=== PATIENT | male | born 1980 | race Caucasian/White ===

== ENCOUNTER 2016-05-14 07:34 | Inpatient (IN) | payer MEDICARE ==
[2016-05-07 14:02] LABS: BASOPHILS 0.3 %; BASOPHILS ABSOLUTE 0.02 10/3/uL (0.0-0.16); EOSINOPHILS 2.6 %; EOSINOPHILS ABSOLUTE 0.18 10/3/uL (0.0-0.53); HEMATOCRIT 35.5 % (40.0-51.0); HEMOGLOBIN 11.7 g/dL (13.6-17.8); IMMATURE GRANULOCYTES 0.1 %; IMMATURE GRANULOCYTES ABSOLUTE 0.01 10/3/uL (0.0-0.11); LYMPHOCYTES 31.8 %; LYMPHOCYTES ABSOLUTE 2.23 10/3/uL (0.67-4.30); MEAN PLATELET VOLUME 10.6 fL (9.2-13.0); MONOCYTES ABSOLUTE 0.42 10/3/uL (0.21-1.20); NEUTROPHILS 59.2 %; NEUTROPHILS ABSOLUTE 4.15 10/3/uL (2.02-8.40); PLATELET COUNT 255 10/3/uL (150-400); RBC DISTRIBUTION WIDTH 14.7 % (12.0-16.0); RED CELL COUNT 4.34 10/6/uL (4.7-6.1)
[2016-05-07 14:03] LABS: MANUAL DIFF NO %; MEAN CORPUSCULAR VOLUME 81.8 fL (80-100)
[2016-05-07 14:21] LABS: BUN (BLOOD UREA NITROGEN) 12 MG/DL (6-23); CALCIUM, SERUM 8.5 MG/DL (8.5-10.4); CHLORIDE, SERUM 102 MMOL/L (96-112); CO2 (CARBON DIOXIDE) 29 MMOL/L (24-34); CREATININE 0.76 MG/DL (0.70-1.30); GFR AFRICAN AMERICAN 135 ML/MIN (>=60); GFR NON AFRICAN AMERICAN 117 ML/MIN (>=60); POTASSIUM, SERUM 4.3 MMOL/L (3.5-5.3); PREALBUMIN 16.1 MG/DL (17.0-43.0); SODIUM, SERUM 140 MMOL/L (135-148)
[2016-05-07 14:22] LABS: GLUCOSE, SERUM 346 MG/DL (60-99)
--- NOTE | ~2016-05-14 | DS ---
Discharge Summary [facility] [address] [place]. [address] NAME: PEDRO BARRERA : 78 STATUS : DIS IN PAT#: [id number] AGE: 36 ADM/REG DATE : 05/14/16 MR#: [id number] REPORT SERV DATE: 05/25/16 DICTATED BY: DARLENE CORNELIUS JR. DATE: 05/24/16 REPORT STATUS : Draft TRANSCRIBED BY: EUGENE DATE: 05/24/16 Data Collection from hospitalization DISCHARGE DIAGNOSES: 1. Sacral ulcer. 2. Hypertension. 3. Obstructive sleep apnea. 4. Diabetes mellitus. CONSULTATIONS: Clay Christianson M.D. PROCEDURE PERFORMED: Excision of sacral ulcer with bone with adjacent myocutaneous flap closure 14 x 7 on 05/14/2016. PATHOLOGY: Skin with underlying cartilage and bone, sacrum debridement, transcutaneous ulceration with underlying mixed inflammation and scarring, chronic active osteomyelitis. MEDICATIONS: Lipitor 40 mg at bedtime, Celexa 20 mg at bedtime, Toujeo 25 units in the morning and 25 units in the evening, NovoLog insulin 12 units before meals, Flomax 0.4 mg at 1800, VESIcare 5 mg at bedtime, Orazinc 220 mg daily, Glucophage 500 mg twice daily, Invokana 100 mg daily, Robaxin 750 mg daily as needed, Prinivil 40 mg daily as needed, Zantac 150 mg twice daily as needed, Levsin 125 mcg every four hours as needed. CONDITION AT DISCHARGE: Upon discharge, he did appear to be doing well and had no complaints. DISPOSITION: He was discharged home to continue an 1800-calorie ADA diet with activity as tolerated. He was to follow up with the [facility] with myself on 05/30/2016. Follow up with his machine skiver as directed. Follow up with Dr. Juancarlos Ricketts on 05/28/2016. Home Healthcare was in place upon discharge. HOSPITAL COURSE: This 36-year-old male had developed a sacral ulceration with osteomyelitis. He had been treated with antibiotics and debridement. He had had significant improvement and appropriate closure was felt to be indicated. He was now admitted for closure and further treatment. Upon admission to the hospital, he had been taken to the operating room where he did undergo the above procedure. He did tolerate this well and was transferred to the recovery room. On postop day #1, he was noted to have a low-grade temperature. His vital signs, however, were otherwise stable. He was continued on his current medications. He had also been evaluated by Dr. Christianson for medical management and he had noted that the patient's diabetes was very uncontrolled despite multiple diabetic medications including long and short-acting insulin. He felt the patient would need to have increased insulin to get his wound to heal quicker. He had recommended planning on a twice a day long-acting insulin with sliding scale insulin and premeal insulin. His Invokana and metformin were placed on hold for the time being. He did also recommend the patient to follow up with an machine skiver in the near future as he had felt the patient may be a candidate for an insulin pump. He did also undergo diabetic education on postop day 1. On postop day #2, he was noted to be feeling better and was encouraged to increase his activity. He had remained afebrile and his vital signs were stable. He was continued on his current medications. On Discharge Summary [address] [address] NAME: PEDRO BARRERA : 78 STATUS : DIS IN PAT#: [id number] AGE: 36 ADM/REG DATE : 05/14/16 MR#: [id number] REPORT SERV DATE: 05/25/16 DICTATED BY: DARLENE CORNELIUS JR. DATE: 05/24/16 REPORT STATUS : Draft TRANSCRIBED BY: EUGENE DATE: 05/24/16 postop day 3, he remained in stable condition, however, was noted to have had an episode of hypoglycemia. He did continue to do well and was then discharged on 05/18/2016 with the above instructions. Information collected by: Kamari MacarioINikita. I submit the above information as my discharge summary. RW/MODL Darlene Cornelius Jr., M.D. / [id number] CC: Cece Mojica Jr., DO
--- NOTE | ~2016-05-14 | CN ---
Consultation Report [facility] [address] [place]. [address] NAME: PEDRO BARRERA : 78 STATUS : ADM Bimal PAT#: [id number] AGE: 36 ADM/REG DATE : 05/14/16 MR#: [id number] REPORT SERV DATE: 05/15/16 DICTATED BY: RANDALL BRENNAN DATE: 05/14/16 REPORT STATUS : Draft TRANSCRIBED BY: MODPatti DATE: 05/14/16 CONSULT DATE OF CONSULTATION: OIL DEVELOPER: Consult coming from Dr. Phelps for diabetic management. HISTORY OF PRESENT ILLNESS: This is a 36-year-old male who has a history of L1 burst fracture and in 4 years ago the patient underwent a thoracolumbar spine surgery and since that time, has been having complications from it including osteomyelitis, cyst formation, delayed wound healing, infected wound. The patient has been seeing different surgeons throughout this time until he maintained relationship with Dr. Phelps. Dr. Phelps has been taking care of his wound and according to the patient and , that his wound is slowly getting better in the past six months. Today, the patient underwent an excision and flap closure of the sacral wound and we are now called for management of diabetes. The patient said that he has been a diabetic for about a few months now and actually could have been a year or so. He says that he sees Dr. Ricketts and has been managing his diabetes. According to what he remembers, there was no change in his dosages for the last six months and his sugar has been uncontrolled ranging from 250 to greater than 400. He denies being noncompliant and he denies any other diabetic complications. He denies any recent fever, chills, or sweats. No nausea and vomiting. He does have incontinence of his urinary and bowel function. He denies any chest pains, cough, near syncopal, or syncopal episode. He did admit though that he gets frequent dizziness when he tries to stand up quickly, and he mentioned that he does not take his lisinopril every day as this makes him bottom out. REVIEW OF SYSTEMS: Rest of the 14-point review of systems is negative except as above. PAST MEDICAL HISTORY: Includes the above, chronic back pain, hypertension, frequent UTIs, fatty liver disease, prostatitis, hypercholesterolemia, multiple surgical events on his back, ear tubes as a child. ALLERGIES: HE IS ALLERGIC TO MORPHINE AND CLINDAMYCIN. MEDICATIONS: Include Lipitor, Invokana, Celexa, Levsin, NovoLog, Toujeo, lisinopril, Glucophage, Robaxin, Zantac, VESIcare, Flomax, and zinc. SOCIAL HISTORY: The patient occasionally drinks alcohol but not to the point of intoxication. He does not smoke or use recreational drugs. FAMILY HISTORY: Positive for CAD. PHYSICAL EXAMINATION: GENERAL: The patient is alert and oriented x3, not in cardiopulmonary distress. Consultation Report [facility] [id number] [facility] [place]. [address] NAME: PEDRO BARRERA : 78 STATUS : ADM Bimal PAT#: [id number] AGE: 36 ADM/REG DATE : 05/14/16 MR#: [id number] REPORT SERV DATE: 05/15/16 DICTATED BY: RANDALL BRENNAN DATE: 05/14/16 REPORT STATUS : Draft TRANSCRIBED BY: EUGENE DATE: 05/14/16 VITAL SIGNS: Include saturation of 99% on room air, blood pressure of 107/73, temperature of 97.7, pulse rate of 69, respiration of 16. NECK: He has supple neck. No JVD or carotid bruits. No lymphadenopathy. HEENT: [place] conjunctivae. Anicteric sclerae. No pharyngeal erythema. LUNGS: Clear lungs. No rales. No wheezes. CARDIOVASCULAR: Regular rate and rhythm. No murmurs appreciated. ABDOMEN: Positive bowel sounds. Soft, nontender, no masses. EXTREMITIES: Fair pulses. Trace edema. NEURO: Shows decreased sensation in the lower extremities, much more decreased in the groin area but it seems to be symmetrical. Muscle strength are symmetrical but the lower extremities are weaker than the upper extremity. The patient has a MIKHAIL drain attached to his back and it is dressed. LABORATORY DATA: On May 07 reveals a chemistry within normal limits except for a glucose of 346, white count of 7.0 and H and H of 11.7 and 35.5. Latest hemoglobin A1c that I could check is in November and that is 9.3. ASSESSMENT: 1. Status post flap closure of sacral wound. 2. Uncontrolled diabetes. 3. Hypertension. 4. Hypercholesterolemia. PLAN: The patient's diabetes is very uncontrolled despite multiple diabetic medications including long and short-acting insulin. He will need to have increased insulin to get his wound to heal quicker. We will plan on a twice a day long-acting insulin with sliding scale and pre-meal insulin. We will hold the Invokana and metformin for now until we get more blood work. The patient may need to see an drapery examiner in the near future and he might be a candidate for an insulin pump. We will hold his BP medications for now as he says he bottoms out and his blood pressure is within low normal levels right now. We will place him on hydralazine p.r.n. Thank you for the consult. The hospitalist team will follow with you. MILKA/EUGENE Randall Brennan M.D. / [id number] CC: Denver Phelps Jr., M.D. Consultation Report [address] [address] NAME: PEDRO BARRERA : 78 STATUS : ADM Bimal PAT#: [id number] AGE: 36 ADM/REG DATE : 05/14/16 MR#: [id number] REPORT SERV DATE: 05/15/16 DICTATED BY: RANDALL BRENNAN DATE: 05/14/16 REPORT STATUS : Draft TRANSCRIBED BY: EUGENE DATE: 05/14/16 Juancarlos Ricketts DO
--- NOTE | ~2016-05-14 | OP ---
Record Of Operation [facility] [address] [place]. [address] NAME: PDERO BARRERA : 78 STATUS : ADM Bimal PAT#: [id number] AGE: 36 ADM/REG DATE : 05/14/16 MR#: [id number] REPORT SERV DATE: 05/15/16 DICTATED BY: DARLENE CORNELIUS JR. DATE: 05/14/16 REPORT STATUS : Draft TRANSCRIBED BY: MODPatti DATE: 05/14/16 DATE OF PROCEDURE: SURGEON: Darlene Cornelius M.D. MEDICAL COLLECTIONS SPECIALIST: Leonie Donaldson. PROCEDURE: Excision of sacral ulcer with bone with adjacent myocutaneous flap closure (14 x 7). PREOPERATIVE DIAGNOSIS: Sacral ulcer. POSTOPERATIVE DIAGNOSIS: Sacral ulcer. ANESTHESIA: General. INDICATIONS: This patient developed a sacral ulceration with osteomyelitis. He has been treatment with antibiotics and debridement. He has had significant improvement and appropriate closure is indicated. FINDINGS: There was a wound that measured 5 x 3 x 4, there was exposure of bone at the base that was nonviable along with some other tissues excised including the bone yielding a very healthy wound, a rhomboid flap incorporating skin, subcutaneous tissue, and portion of muscle and fascia was undertaken from the patient's right side and rotated closure. This was closed over 14 x 7 cm area. DESCRIPTION OF PROCEDURE: With adequate general anesthesia, the patient was placed in the prone position. The buttock area was prepped and draped sterilely. A 10 blade incision was made around the ulcer. This was carried down sharply through the subcutaneous tissues. Nonviable tissue excised from the skin and subcutaneous tissue, also a curette was utilized and then an osteotome to remove portions of the sacrum. Hemostasis was ensured with electrocautery. The wound was irrigated thoroughly with saline and also with a pulse lavage. Then, a superolateral right-sided rhomboid flap was outlined, a myocutaneous flap was then rotated and to close the defect and the wound was then closed with subcutaneous 2-0 Vicryl and cutaneous sutures of 2-0 nylon. A 19 Aurelio drain was left in the defect and brought out on the right-side where it was secured with a nylon suture, and the wound was then dressed with an Aquacel flex and overlay negative pressure VAC dressing. He tolerated it well. ESTIMATED BLOOD LOSS: 100 mL. AFRICA/EUGENE Darlene Cornelius Record Of Operation [address] [place]. [address] NAME: PEDRO BARRERA : 78 STATUS : ADM Bimal PAT#: [id number] AGE: 36 ADM/REG DATE : 05/14/16 MR#: [id number] REPORT SERV DATE: 05/15/16 DICTATED BY: DARLENE CORNELIUS JR. DATE: 05/14/16 REPORT STATUS : Draft TRANSCRIBED BY: EUGENE DATE: 05/14/16 Cece Burns / [id number]
[~2016-05-14 07:34] MED LIST: CELEXA20 PO; DITROPAN XL10 MG PO; FLOMAX4 PO; GLUCPH PO; INVOKANA100 MG PO; LANTUSCART SC; LEVAQUIN750 MG PO; LEVSINTAB PO; LIPITOR40 PO; LISINOPRIL40 MG PO; METHOC750B PO; NEUR300 PO; NOVOLOG SC; NOVOPENMIX SC; ORAZINC110 MG; PCET PO; TOUJEO SC; VESICARE10 MG PO; VESICARE5 PO; VICTOZA18 MG/3 ML SC; ZANTAC150 MG PO; ZOLOFT25 MG PO; ZOSYN375 IV; [UNRECOGNIZED DRUG - OTHER] PO
[2016-05-15 06:11] LABS: BASOPHILS 0.3 %; BASOPHILS ABSOLUTE 0.02 10/3/uL (0.0-0.16); EOSINOPHILS 1.6 %; EOSINOPHILS ABSOLUTE 0.12 10/3/uL (0.0-0.53); HEMATOCRIT 32.8 % (40.0-51.0); HEMOGLOBIN 10.5 g/dL (13.6-17.8); IMMATURE GRANULOCYTES 0.3 %; IMMATURE GRANULOCYTES ABSOLUTE 0.02 10/3/uL (0.0-0.11); LYMPHOCYTES 28.2 %; LYMPHOCYTES ABSOLUTE 2.08 10/3/uL (0.67-4.30); MEAN CORPUSCULAR HEMOGLOB 26.9 pg (26.0-34.0); MEAN CORPUSCULAR VOLUME 84.1 fL (80-100); MEAN PLATELET VOLUME 10.4 fL (9.2-13.0); MONOCYTES 8.3 %; MONOCYTES ABSOLUTE 0.61 10/3/uL (0.21-1.20); NEUTROPHILS 61.3 %; NEUTROPHILS ABSOLUTE 4.53 10/3/uL (2.02-8.40); PLATELET COUNT 261 10/3/uL (150-400); WHITE BLOOD CELLS 7.4 10/3/uL (4.5-10.5)
[2016-05-15 06:12] LABS: MANUAL DIFF NO %
[2016-05-15 06:27] LABS: A/G RATIO 0.6 (0.7-1.9); ALBUMIN 2.2 G/DL (3.5-5.0); BUN (BLOOD UREA NITROGEN) 10 MG/DL (6-23); CALCIUM, SERUM 8.2 MG/DL (8.5-10.4); CHLORIDE, SERUM 103 MMOL/L (96-112); CO2 (CARBON DIOXIDE) 31 MMOL/L (24-34); CREATININE 0.63 MG/DL (0.70-1.30); GFR AFRICAN AMERICAN 146 ML/MIN (>=60); GFR NON AFRICAN AMERICAN 126 ML/MIN (>=60); GLOBULIN 3.5 G/DL (2.5-4.1); POTASSIUM, SERUM 3.9 MMOL/L (3.5-5.3); SGOT(AST) 7 U/L (5-40); SGPT(ALT) 10 U/L (5-65); SODIUM, SERUM 140 MMOL/L (135-148); TOTAL BILIRUBIN 0.5 MG/DL (0-1.2); TOTAL PROTEIN 5.7 G/DL (6.0-8.5)
[2016-05-15 06:29] LABS: ALKALINE PHOSPHATASE 107 U/L (45-117); GLUCOSE, SERUM 175 MG/DL (60-99)
[2016-05-15 07:11] LABS: PREALBUMIN 8.4 MG/DL (17.0-43.0)
[2016-05-16 06:19] LABS: HEMOGLOBIN 10.5 g/dL (13.6-17.8); MEAN CORPUS HGB CONC 31.8 g/dL (32.0-36.0); MEAN CORPUSCULAR HEMOGLOB 26.6 pg (26.0-34.0); MEAN CORPUSCULAR VOLUME 83.5 fL (80-100); MEAN PLATELET VOLUME 10.7 fL (9.2-13.0); PLATELET COUNT 283 10/3/uL (150-400); RED CELL COUNT 3.95 10/6/uL (4.7-6.1); WHITE BLOOD CELLS 6.6 10/3/uL (4.5-10.5)
[2016-05-16 06:23] LABS: BUN (BLOOD UREA NITROGEN) 8 MG/DL (6-23); CALCIUM, SERUM 8.4 MG/DL (8.5-10.4); CHLORIDE, SERUM 103 MMOL/L (96-112); CO2 (CARBON DIOXIDE) 28 MMOL/L (24-34); CREATININE 0.54 MG/DL (0.70-1.30); GFR AFRICAN AMERICAN 155 ML/MIN (>=60); GFR NON AFRICAN AMERICAN 134 ML/MIN (>=60); GLUCOSE, SERUM 84 MG/DL (60-99); POTASSIUM, SERUM 3.4 MMOL/L (3.5-5.3); SODIUM, SERUM 142 MMOL/L (135-148)
[2016-05-16 06:46] LABS: EOSINOPHILS 4 %; EOSINOPHILS ABSOLUTE (CALC) 0.26 10/3/uL (0.0-0.53); LYMPHOCYTES 25 %; LYMPHOCYTES ABSOLUTE (CALC) 1.65 10/3/uL (0.67-4.30); MONOCYTES 2 %; MONOCYTES ABSOLUTE (CALC) 0.13 10/3/uL (0.21-1.20); NEUTROPHILS ABSOLUTE (CALC) 4.55 10/3/uL (2.02-8.40); PLATELET ESTIMATE ADQ (ADEQUATE); RBC MORPHOLOGY NORM (NORMAL); SEGMENTED NEUTROPHIL (0) 69 %; TOTAL NUCLEATED CELLS 100
[2016-05-17 05:48] LABS: CALCIUM, SERUM 8.6 MG/DL (8.5-10.4); CHLORIDE, SERUM 104 MMOL/L (96-112); CO2 (CARBON DIOXIDE) 26 MMOL/L (24-34); CREATININE 0.62 MG/DL (0.70-1.30); GFR AFRICAN AMERICAN 147 ML/MIN (>=60); GFR NON AFRICAN AMERICAN 127 ML/MIN (>=60); GLUCOSE, SERUM 72 MG/DL (60-99); POTASSIUM, SERUM 3.9 MMOL/L (3.5-5.3); SODIUM, SERUM 141 MMOL/L (135-148)
[2016-05-17 05:49] LABS: BUN (BLOOD UREA NITROGEN) 12 MG/DL (6-23)
[2016-05-18 06:19] LABS: BASOPHILS 0.3 %; BASOPHILS ABSOLUTE 0.02 10/3/uL (0.0-0.16); EOSINOPHILS 3.8 %; EOSINOPHILS ABSOLUTE 0.29 10/3/uL (0.0-0.53); HEMOGLOBIN 11.5 g/dL (13.6-17.8); IMMATURE GRANULOCYTES 0.4 %; IMMATURE GRANULOCYTES ABSOLUTE 0.03 10/3/uL (0.0-0.11); LYMPHOCYTES 30.7 %; LYMPHOCYTES ABSOLUTE 2.37 10/3/uL (0.67-4.30); MEAN CORPUS HGB CONC 31.6 g/dL (32.0-36.0); MEAN CORPUSCULAR HEMOGLOB 26.4 pg (26.0-34.0); MEAN CORPUSCULAR VOLUME 83.5 fL (80-100); MEAN PLATELET VOLUME 10.5 fL (9.2-13.0); MONOCYTES 6.2 %; MONOCYTES ABSOLUTE 0.48 10/3/uL (0.21-1.20); NEUTROPHILS 58.6 %; NEUTROPHILS ABSOLUTE 4.53 10/3/uL (2.02-8.40); PLATELET COUNT 333 10/3/uL (150-400); RBC DISTRIBUTION WIDTH 14.7 % (12.0-16.0); RED CELL COUNT 4.36 10/6/uL (4.7-6.1); WHITE BLOOD CELLS 7.7 10/3/uL (4.5-10.5)
[2016-05-18 06:27] LABS: HEMATOCRIT 36.4 % (40.0-51.0); MANUAL DIFF NO %
[2016-05-18 06:36] LABS: BUN (BLOOD UREA NITROGEN) 12 MG/DL (6-23); CALCIUM, SERUM 8.7 MG/DL (8.5-10.4); CHLORIDE, SERUM 101 MMOL/L (96-112); CO2 (CARBON DIOXIDE) 29 MMOL/L (24-34); CREATININE 0.75 MG/DL (0.70-1.30); GFR AFRICAN AMERICAN 136 ML/MIN (>=60); GFR NON AFRICAN AMERICAN 117 ML/MIN (>=60); POTASSIUM, SERUM 4.1 MMOL/L (3.5-5.3); SODIUM, SERUM 141 MMOL/L (135-148)
[2016-05-18 06:40] LABS: GLUCOSE, SERUM 149 MG/DL (60-99)
== END 2016-05-18 12:13 | disposition home health service (06) | DRG 629 ==
LOC: SDC 07:34 → 5SO 15:44
PROVIDERS: Hospitalist; Specialist
PROC: 0KX Muscles, Transfer (ICD-10-PCS; 2016-05-14)
PROC: 0QB10ZZ Excision of Sacrum, Open Approach (ICD-10-PCS; principal; 2016-05-14 09:00)
DX: E11.69 Type 2 diabetes mellitus with other specified complication (principal); M86.8X8 Other osteomyelitis, other site; L98.4 Non-pressure chronic ulcer of skin, not elsewhere classified; E11.65 Type 2 diabetes mellitus with hyperglycemia; Z68.41 Body mass index [BMI] 40.0-44.9, adult; I10 Essential (primary) hypertension; Z88.1 Allergy status to other antibiotic agents; Z80.8 Family history of malignant neoplasm of other organs or systems; Z82.49 Family history of ischemic heart disease and other diseases of the circulatory system; G47.33 Obstructive sleep apnea (adult) (pediatric); E66.9 Obesity, unspecified
CPT/HCPCS: 80048; 80053; 82962; 83036; 83735; 84134; 85007; 85025; 85027; 88304; 88311; 93005; A9270-GY; J0690; J2250; J2405; J2710; J3010; J3370

== ENCOUNTER 2016-07-15 22:40 | Emergency (ER) | payer MEDICARE, SELFPAY ==
[2016-07-15 23:40] LABS: BASOPHILS 0.1 %; BASOPHILS ABSOLUTE 0.01 10/3/uL (0.0-0.16); EOSINOPHILS 0.6 %; EOSINOPHILS ABSOLUTE 0.05 10/3/uL (0.0-0.53); HEMATOCRIT 35.6 % (40.0-51.0); HEMOGLOBIN 11.4 g/dL (13.6-17.8); IMMATURE GRANULOCYTES 0.2 %; IMMATURE GRANULOCYTES ABSOLUTE 0.02 10/3/uL (0.0-0.11); LYMPHOCYTES 22.2 %; MEAN CORPUSCULAR HEMOGLOB 25.7 pg (26.0-34.0); MEAN CORPUSCULAR VOLUME 80.4 fL (80-100); MEAN PLATELET VOLUME 10.7 fL (9.2-13.0); MONOCYTES 6.2 %; MONOCYTES ABSOLUTE 0.53 10/3/uL (0.21-1.20); NEUTROPHILS 70.7 %; NEUTROPHILS ABSOLUTE 6.05 10/3/uL (2.02-8.40); PLATELET COUNT 225 10/3/uL (150-400); RBC DISTRIBUTION WIDTH 15.8 % (12.0-16.0); RED CELL COUNT 4.43 10/6/uL (4.7-6.1); WHITE BLOOD CELLS 8.6 10/3/uL (4.5-10.5)
[2016-07-15 23:41] LABS: MANUAL DIFF NO %
[2016-07-15 23:45] LABS: ASCORBIC ACID (UR NOT ORDER) NEG (NEG); BILIRUBIN, URINE NEGATIVE (NEG); ER URINALYSIS TAT 0 Hrs 00 Mins; KETONE, URINE NEGATIVE (NEG); LEUKOCYTE ESTERASE(NOT OR NEG (NEG); NITRITE (URINE) NEG (NEG); WBC (NOT ORDERED) (RFLEX) 1 (0-5)
[2016-07-15 23:55] LABS: A/G RATIO 0.6 (0.7-1.9); ALBUMIN 2.8 G/DL (3.5-5.0); ALKALINE PHOSPHATASE 152 U/L (45-117); BUN (BLOOD UREA NITROGEN) 8 MG/DL (6-23); CALCIUM, SERUM 8.3 MG/DL (8.5-10.4); CHLORIDE, SERUM 103 MMOL/L (96-112); CO2 (CARBON DIOXIDE) 27 MMOL/L (24-34); CREATININE 0.89 MG/DL (0.70-1.30); GFR AFRICAN AMERICAN 127 ML/MIN (>=60); GFR NON AFRICAN AMERICAN 109 ML/MIN (>=60); GLOBULIN 4.6 G/DL (2.5-4.1); GLUCOSE, SERUM 278 MG/DL (60-99); POTASSIUM, SERUM 4.1 MMOL/L (3.5-5.3); SGOT(AST) 18 U/L (5-40); SGPT(ALT) 20 U/L (5-65); SODIUM, SERUM 137 MMOL/L (135-148); TOTAL BILIRUBIN 0.1 MG/DL (0-1.2); TOTAL PROTEIN 7.4 G/DL (6.0-8.5)
[2016-07-15 23:56] LABS: LACTATE 2.2 MMOL/L (0.3-2.4)
== END 2016-07-16 01:22 | disposition home or self-care (01) ==
LOC: ER 22:40
PROVIDERS: Nurse Practitioner
DX: T81.4XXA Infection following a procedure, initial encounter (principal); I10 Essential (primary) hypertension; E11.65 Type 2 diabetes mellitus with hyperglycemia; Z88.1 Allergy status to other antibiotic agents; Z88.5 Allergy status to narcotic agent; Z79.84 Long term (current) use of oral hypoglycemic drugs; Z79.4 Long term (current) use of insulin; Z79.899 Other long term (current) drug therapy
CPT/HCPCS: 71010; 80053; 81001; 83605; 85025; 87040; 87070; 87205; 99284; A9270-GY